=== PATIENT | male | born 2000 | race Caucasian/White ===

== ENCOUNTER 2019-12-12 14:53 | Emergency (ER) | payer MEDICAID ==
[~2019-12-12] VITALS: Ht 175.3 cm; Wt 65.8 kg
--- NOTE | 2019-12-12 14:56 | NUR ---
Ambulated to bed 3
[2019-12-12 14:59] VITALS: BP 122/67
--- NOTE | 2019-12-12 15:02 | NUR ---
19 y/o male referred from urgent care c/o chest pain that radiates to left shoulder since 1999 yesterday. Denies SOB. States 10/09 constant pressure to chest with increased pain in shoulder. Denies trauma/injury. RR even and unlabored, positioned for comfort. VSS medhx: denies
[2019-12-12] MEDS ORDERED: KETOROLAC 30 MG/ML VIAL IM ONE (15:30)
--- NOTE | 2019-12-12 15:44 | NUR ---
xray at bedside
[2019-12-12 16:55] VITALS: BP 118/61
== END 2019-12-12 16:55 | disposition home or self-care (01) ==
LOC: MED 14:53
DX: R07.9 Chest pain, unspecified (principal)
CPT/HCPCS: 71045; 93005; 96372; 99283; J1885; Q0092